=== PATIENT | male | born 1970 | race African-American/Black ===

== ENCOUNTER 2017-05-07 22:37 | Emergency (ER) | payer MEDICAID ==
[~2017-05-07] VITALS: Ht 175.3 cm; Wt 102.1 kg
--- NOTE | 2017-05-08 01:13 | NUR ---
BIBSELF C/O WOUND CHECK, CIRCUMCISED X 4 DAYS. PT AMBULATORY TO ER BED 9. PT AOX3 RR EVEN AND UNLABORED. NO SOB NOTED. NAD NOTED. NO NVD AT THIS TIME. PT GOWNED WAITING FO YOVANNY TORRES.
[2017-05-08 02:20] VITALS: BP 149/101
== END 2017-05-08 03:03 | disposition home or self-care (01) ==
LOC: ER 22:43
DX: Z48.01 Encounter for change or removal of surgical wound dressing (principal); N48.89 Other specified disorders of penis; I10 Essential (primary) hypertension; E78.00 Pure hypercholesterolemia, unspecified
CPT/HCPCS: 99281; A4606; Z7610; Z7502